=== PATIENT | male | born 1990 | race African-American/Black ===

== ENCOUNTER 2018-08-11 22:34 | Emergency (ER) | payer OTHER ==
[~2018-08-11] VITALS: Ht 170.2 cm; Wt 65.8 kg
[2018-08-11 22:35] VITALS: BP_SYST 136
[2018-08-11] MEDS ORDERED: levETIRAcetam 1,000 MG in NS 100 ML IV ONE (22:45)
== END 2018-08-11 23:00 | disposition left against medical advice (07) ==
LOC: SED 22:34
DX: R56.9 Unspecified convulsions (principal)
CPT/HCPCS: 99283

== ENCOUNTER 2019-01-23 00:20 | Emergency (ER) | payer OTHER ==
[~2019-01-23] VITALS: Ht 177.8 cm; Wt 65.8 kg
[2019-01-23 00:25] VITALS: BP_SYST 147
--- NOTE | 2019-01-23 00:25 | NUR ---
Patient triaged and placed in waiting room. VSS and patient appears in no acute distress at this time. Accompanied by FRIEND, awaiting available bed, and MD notified of need for MSE.
--- NOTE | 2019-01-23 00:37 | NUR ---
Patient to ER bed 2 to gown for evaluation. Side rails up. Report given to ANTHONY SMITH.
--- NOTE | 2019-01-23 00:42 | NUR ---
ER at bedside examining patient.
--- NOTE | 2019-01-23 00:45 | NUR ---
Pt BIB family to ED C/O right hand pain for 1 day. Pt reports having acute onset, gradually worsening pain after boxing practice yesterday. Pt reports the pain is moderate in severity, constant, non-radiating. No medications used for pain. Pain worse with movement. Patient is right hand dominant. No other complaints and or injuries noted. VSS no s/s of acute distress. Resting on gurney with rails up
--- NOTE | 2019-01-23 00:56 | NUR ---
Pt taken to radiology ambulatory w/ steady gait.
[2019-01-23] MEDS ORDERED: IBUPROFEN 800 MG TABLET PO ONE (01:00)
--- NOTE | 2019-01-23 01:02 | NUR ---
Pt back from Radiology, well tolerated
[2019-01-23 01:41] VITALS: BP_SYST 145
== END 2019-01-23 01:41 | disposition home or self-care (01) ==
LOC: SED 00:20
DX: S60.221A Contusion of right hand, initial encounter (principal); X58.XXXA Exposure to other specified factors, initial encounter; Y93.71 Activity, boxing; Y92.89 Other specified places as the place of occurrence of the external cause; Y99.8 Other external cause status
CPT/HCPCS: 99283

== ENCOUNTER 2020-12-01 08:21 | Emergency (ER) | payer OTHER ==
[~2020-12-01] VITALS: Ht 177.8 cm; Wt 65.8 kg
[2020-12-01 08:35] VITALS: BP_SYST 131
[2020-12-01 09:14] LABS: BASOPHILS % (AUTO) 0.2 % (0.0-2.0); HEMATOCRIT 42.9 % (36-54); HEMOGLOBIN 13.3 g/dL (14.0-18.0); LYMPHOCYTES # (AUTO) 1.9 K/uL (1.0-5.5); LYMPHOCYTES % (AUTO) 42.9 % (20.5-51.5); MEAN CORPUSCULAR HEMOGLOBIN 25 pg (27-31); MEAN CORPUSCULAR HGB CONC 31 % (32-36); MEAN CORPUSCULAR VOLUME 80 fL (79.0-98.0); MONOCYTES # (AUTO) 0.5 K/uL (0.0-1.0); NEUTROPHILS # (AUTO) 1.9 K/uL (1.8-7.7); NEUTROPHILS % (AUTO) 44.9 % (40.0-70.0); PLATELET COUNT (AUTO) 224 K/uL (130-430); RED BLOOD CELL COUNT(AUTO) 5.33 MIL/uL (4.2-6.2); WHITE BLOOD COUNT (AUTO) 4.3 K/uL (4.8-10.8)
[2020-12-01 09:24] LABS: CALCIUM 8.5 mg/dL (8.4-11.0); CREATININE 0.92 mg/dL (0.55-1.30); POTASSIUM 4.4 mmol/L (3.5-5.1)
[2020-12-01 09:29] LABS: ALBUMIN 2.9 g/dL (3.4-4.8); TOTAL BILIRUBIN 0.8 mg/dL (0.0-1.0)
[2020-12-01] MEDS ORDERED: FUROSEMIDE 40 MG/4 ML VIAL IVP ONE (09:45)
[2020-12-01] MEDS ORDERED: MORPHINE 4 MG INJ. 4 MG/ML VIAL IVP ONE (10:45)
[2020-12-01] MEDS ORDERED: ONDANSETRON HCL 4 MG/2 ML VIAL IVP ONE (10:45)
[2020-12-01 13:16] VITALS: BP_SYST 110
== END 2020-12-01 13:16 | disposition home or self-care (01) ==
LOC: SED 08:21
DX: R18.8 Other ascites (principal)
CPT/HCPCS: 36415; 49083; 71045; 76700; 80053; 84484; 85025; 93005; 96374; 96375; 99285; J1940; J2270; J2405

== ENCOUNTER 2021-08-18 15:22 | Emergency (ER) | payer OTHER, SELFPAY ==
[~2021-08-18] VITALS: Ht 177.8 cm; Wt 70.3 kg
[~2021-08-18 15:22] MED LIST: CARV12.548 PO; FOLI-43 PO; FURO-150 PO; LIB25 PO; SACU1TAB PO; SPIR25TA PO; THIA50TA10 PO
[2021-08-18 15:53] VITALS: BP_SYST 111
[2021-08-18 19:19] LABS: BASOPHILS # (AUTO) 0.1 K/uL (0.0-0.2); BASOPHILS % (AUTO) 1.5 % (0.0-2.0); EOSINOPHILS # (AUTO) 0.3 K/uL (0.0-0.4); EOSINOPHILS % (AUTO) 5.5 % (0.0-4.0); HEMATOCRIT 34.6 % (36-54); HEMOGLOBIN 10.9 g/dL (14.0-18.0); LYMPHOCYTES # (AUTO) 1.6 K/uL (1.0-5.5); LYMPHOCYTES % (AUTO) 31.1 % (20.5-51.5); MEAN CORPUSCULAR HEMOGLOBIN 27 pg (27-31); MEAN CORPUSCULAR HGB CONC 32 % (32-36); MEAN CORPUSCULAR VOLUME 85 fL (79.0-98.0); MONOCYTES # (AUTO) 0.6 K/uL (0.0-1.0); MONOCYTES % (AUTO) 11.7 % (1.7-9.3); NEUTROPHILS # (AUTO) 2.7 K/uL (1.8-7.7); NEUTROPHILS % (AUTO) 50.2 % (40.0-70.0); PLATELET COUNT (AUTO) 207 K/uL (130-430); RED BLOOD CELL COUNT(AUTO) 4.09 MIL/uL (4.2-6.2); RED CELL DISTRIBUTION WIDTH 20.7 % (9.0-15.0); WHITE BLOOD COUNT (AUTO) 5.3 K/uL (4.8-10.8)
[2021-08-18 20:07] LABS: CALCIUM 9.4 mg/dL (8.4-11.0); CREATININE 1.29 mg/dL (0.55-1.30); POTASSIUM 3.9 mmol/L (3.5-5.1)
[2021-08-18 20:12] LABS: ALBUMIN 3.4 g/dL (3.4-4.8); TOTAL BILIRUBIN 0.7 mg/dL (0.0-1.0)
[2021-08-18 20:41] LABS: BILIRUBIN,URINE NEGATIVE (NEGATIVE); BLOOD, URINE NEGATIVE (NEGATIVE); CLARITY/URINE CLEAR (CLEAR); COLOR,URINE YELLOW (YELLOW); GLUCOSE,URINE NEGATIVE (NEGATIVE); KETONES,URINE NEGATIVE (NEGATIVE); LEUKOCYTE ESTERASE ,URINE NEGATIVE (NEGATIVE); NITRITE, URINE NEGATIVE (NEGATIVE); PROTEIN URINE NEGATIVE (NEGATIVE)
[2021-08-18 21:06] LABS: CKMB RELATIVE INDEX 0.1 (0.0-2.9); CREATINE KINASE MB 0.5 ng/mL (0-3.6)
[2021-08-18 21:25] VITALS: BP_SYST 110
== END 2021-08-18 21:37 | disposition home or self-care (01) ==
LOC: SED 15:22
DX: F41.9 Anxiety disorder, unspecified (principal); Z79.899 Other long term (current) drug therapy
CPT/HCPCS: 36415; 71045; 80053; 81003; 82550; 82553; 84484; 85025; 93005; 99285